=== PATIENT | female | born 1975 | race Caucasian/White ===

== ENCOUNTER 2018-09-13 20:30 | Emergency (ER) | payer MEDICAID ==
[2014-03-18 22:05] VITALS: BP 118/56
== END 2018-09-13 20:45 | disposition left against medical advice (07) ==
LOC: ER 20:30
DX: R10.9 Unspecified abdominal pain (principal)

== ENCOUNTER 2020-04-17 15:35 | Emergency (ER) | payer SELFPAY ==
[~2020-04-17] VITALS: Ht 177.8 cm; Wt 75.0 kg
--- NOTE | 2020-04-17 15:45 | PHYS DOC ---
Past Medical History Past Medical History: Anxiety, Asthma Past Surgical History: Tubal ligation Smoking Status: Current Every Day Smoker Alcohol Use: None Drug Use: None General Adult EDM: Chief Complaint: WRIST PAIN HPI: HPI: Patient is a 44 year old female with history of anxiety, asthma, presenting to the ED today complaining of 8 out of 10 bilateral wrist pain, symptoms began 4 days ago after she slipped on ice and fell bracing herself with her hands. Patient denies any loss of consciousness. Describes the pain as throbbing and intermittent worse on range of motion. States immobilization relieves the pain. Review of Systems: Review of Systems: Constitutional: Denies fever or chills. [] Musculoskeletal: Reports bilateral wrist pain. Integument: Denies rash. [] Neurologic: Denies headache, focal weakness or sensory changes. [] Psychiatric: Denies depression or anxiety. [] Heart Score: Risk Factors: Risk Factors: DM, Current or recent (<one month) smoker, HTN, HLP, family history of CAD, obesity. Risk Scores: Score 0 - 3: 2.5% MACE over next 6 weeks - Discharge Home Score 4 - 6: 20.3% MACE over next 6 weeks - Admit for Clinical Observation Score 7 - 10: 72.7% MACE over next 6 weeks - Early Invasive Strategies Allergies: Allergies: Allergies Coded Allergies Type Severity Reaction Last Updated Verified No Known Drug Allergies 03/18/14 No Physical Exam: PE: Constitutional: Well developed, well nourished, no acute distress, non-toxic appearance. [] Skin: Warm, dry, no erythema, no rash. [] Back: No tenderness, no CVA tenderness. [] Extremities: Bilateral wrists with no obvious deformity. Tenderness diffusely throughout the wrist. Full range of motion department. No scaphoid tenderness bilaterally. Adequate radial, medial, ulnar sensation to bilateral upper extremities. +2 left radial pulse. Cap refill less than 2 seconds to bilateral fingers. Neurologic: Alert and oriented X 3, normal motor function, normal sensory function, no focal deficits noted. [] Psychologic: Affect normal, judgement normal, mood normal. [] EKG: EKG: [] Radiology/Procedures: Radiology/Procedures: []PROCEDURE: WRIST BILAT 3V EXAMINATION: XR WRIST 3V CLINICAL HISTORY: Bilateral wrist pain following fall TECHNIQUE: XR WRIST 3V Number of Images/Views: 6 COMPARISON: None FINDINGS: No acute fracture. [id number] degenerative changes bilateral first CMC joints. Mild degenerative changes right triscaphe joint. No focal soft tissue swelling. IMPRESSION: No acute osseous abnormality bilateral wrists. Electronically signed by: Victorino Felix DO (04/17/2020 4:02 PM) [id number] DICTATED and SIGNED BY: VICTORINO FELIX DO DATE: 04/17/20 [id number] 0 Course & Med Decision Making: Course & Med Decision Making Pertinent Labs and Imaging studies reviewed. (See chart for details) This is a 44-year-old female patient presenting to the ED today complaining of bilateral wrist pain after falling down 4 days ago. Bilateral wrist x-rays interpreted by radiologist are negative for any acute findings, discharged to [facility]. Ice elevation encouraged. Velcro splints provided for bilateral wrists. OTC pain relievers. Follow-up with PCP orthopedic doctor in 1 to 2 weeks. Michelle Disclaimer: Michelle Disclaimer: This electronic medical record was generated, in whole or in part, using a voice recognition dictation system. Departure Departure Impression: Primary Impression: Right wrist sprain Qualified Codes: S63.501A - Unspecified sprain of right wrist, initial encounter Additional Impression: Left wrist sprain Qualified Codes: S63.502A - Unspecified sprain of left wrist, initial encounter Disposition: 01 DC HOME SELF CARE/HOMELESS Condition: STABLE Referrals: NO PCP (PCP) JENA EARLY MD follow up in 2 weeks Patient Instructions: Wrist Sprain with Rehab-Sports[facility] Additional Instructions: You were seen for bilateral wrist pain, your wrist x-rays are negative for any acute findings. Please follow-up with your primary care doctor or the provided orthopedic doctor in 1 to 2 weeks. Try to ice and elevate the extremities. FRANCESCO BABB APRN Apr 17, 2020 15:45
[2020-04-17 15:55] VITALS: BP 102/59
--- NOTE | 2020-04-17 16:04 | RAD ---
EXAMINATION: XR WRIST 3V CLINICAL HISTORY: Bilateral wrist pain following fall TECHNIQUE: XR WRIST 3V Number of Images/Views: 6 COMPARISON: None FINDINGS: No acute fracture. [id number] degenerative changes bilateral first CMC joints. Mild degenerativ e changes right triscaphe joint. No focal soft tissue swelling. IMPRESSION: No acute osseous abnormality bilateral wrists. Electronically signed by: Victorino Ibrahim DO (04/17/2020 4:02 PM) [id number]
== END 2020-04-17 16:28 | disposition home or self-care (01) ==
LOC: ER 15:35
DX: S63.501A Unspecified sprain of right wrist, initial encounter (principal); S63.502A Unspecified sprain of left wrist, initial encounter; J45.909 Unspecified asthma, uncomplicated; F17.200 Nicotine dependence, unspecified, uncomplicated; W00.0XXA Fall on same level due to ice and snow, initial encounter; Y93.89 Activity, other specified; Y92.89 Other specified places as the place of occurrence of the external cause; Y99.8 Other external cause status
CPT/HCPCS: 29125; 99283; 73110-50

== ENCOUNTER 2020-05-25 02:21 | Emergency (ER) | payer SELFPAY ==
[~2020-05-25] VITALS: Ht 177.8 cm; Wt 68.2 kg
--- NOTE | 2020-05-25 02:31 | PHYS DOC ---
Past Medical History Past Medical History: Anxiety, Asthma Past Surgical History: Tubal ligation Smoking Status: Current Every Day Smoker Alcohol Use: None Drug Use: None General Adult EDM: Chief Complaint: SEXUALLY TRANSMITTED DISEASE HPI: HPI: 44-year-old female presents with report of sore throat this been ongoing for 4 days. Patient reports no exposure to gonorrhea from her . Patient denies any vaginal discharge or discomfort. Denies fever or chills. Denies other known sick contacts. Denies known exposure to COVID-19. Denies . Reports history of tubal ligation. Review of Systems: Review of Systems: Constitutional: Denies fever or chills Eyes: Denies redness or eye pain HENT: Denies nasal congestion; reports sore throat Respiratory: Denies cough or shortness of breath Cardiovascular: Denies chest pain or palpitations GI: Denies abdominal pain, nausea, or vomiting /[employer]: Denies dysuria or hematuria; denies vaginal bleeding or discharge Musculoskeletal: Denies back pain or joint pain Integument: Denies rash or skin lesions Neurologic: Denies headache, focal weakness or sensory changes Complete systems were reviewed and found to be within normal limits, except as documented in this note. Heart Score: C/O Chest Pain: N/A Current Medications: Current Medications Medications (Trade) Dose Ordered Sig/Robin Start Time Stop Time Status Last Admin Dose Admin Azithromycin (Zithromax) 1,000 mg 1X ONCE 05/25/20 02:30 05/25/20 02:31 UNV Ceftriaxone Sodium (Rocephin Im) 500 mg 1X ONCE 05/25/20 02:30 05/25/20 02:31 UNV Allergies: Allergies: Allergies Coded Allergies Type Severity Reaction Last Updated Verified No Known Drug Allergies 03/18/14 No Physical Exam: PE: Constitutional: Well developed, well nourished, no acute distress, non-toxic appearance HENT: Normocephalic, atraumatic, pharynx erythematous without exudate Eyes: Conjunctiva normal, no discharge Neck: Normal range of motion, supple Lungs & Thorax: No respiratory distress, equal chest rise and fall Skin: Warm, dry, no erythema, no rash Extremities: No tenderness, ROM intact, no edema Neurologic: Alert and oriented X 3, no focal deficits noted Psychologic: Affect normal, judgment normal EKG: EKG: [] Radiology/Procedures: Radiology/Procedures: [] Course & Med Decision Making: Course & Med Decision Making Pertinent Lab studies reviewed. (See chart for details) Patient presents with known exposure to gonorrhea. Patient reports 4-day history of sore throat. Patient concerned she may have gonorrhea of the throat. Rapid strep negative. Chlamydia/gonorrhea culture obtained of throat. Patient denies any vaginal bleeding or discharge. Empiric antibiotic with IM Rocephin and p.o. azithromycin provided. Patient stable for discharge with outpatient follow-up with PCP. Discussed findings and plan with patient, who acknowledges understanding and agreement. Dragon Disclaimer: [employer] Disclaimer: This electronic medical record was generated, in whole or in part, using a voice recognition dictation system. Departure Departure Impression: Primary Impression: Pharyngitis Qualified Codes: J02.9 - Acute pharyngitis, unspecified Additional Impression: Exposure to sexually transmitted disease (STD) Disposition: 01 DC HOME SELF CARE/HOMELESS Condition: STABLE Referrals: NO PCP (PCP) ROCAEL ASTORGA Jr, MD Patient Instructions: Sexually Transmitted Disease, [id number]-[id number], Viral and Bacterial Pharyngitis, Nwpy-[id number] Additional Instructions: Hold antibiotics for 48 hours. If symptoms worsen or for fever > 100.3 F after 48 hours then start antibiotics as prescribed. Scripts Amoxicillin/Potassium Clav (AUGMENTIN 875-125 TABLET) 1 Each Tablet 1 TAB PO BID, #14 TAB Prov: REX MCKEE DO 05/25/20 REX MCKEE DO May 25, 2020 02:30
[2020-05-25] MEDS ORDERED: AMOX1TAB61 PO (02:42)
[2020-05-25 02:50] VITALS: BP 120/65
[2020-05-25] MEDS ORDERED: AZITHROMYCIN 250 MG TABLET. PO ONE (03:00)
[2020-05-25] MEDS ORDERED: cefTRIAXone IM 500 MG VIAL. IM ONE (03:00)
[2020-05-26 20:22] LABS: GC PROBE Positive (Negative)
== END 2020-05-25 02:59 | disposition home or self-care (01) ==
LOC: ER 02:21
DX: J02.9 Acute pharyngitis, unspecified (principal); Z20.2 Contact with and (suspected) exposure to infections with a predominantly sexual mode of transmission; F41.9 Anxiety disorder, unspecified; J45.909 Unspecified asthma, uncomplicated; F17.200 Nicotine dependence, unspecified, uncomplicated; Z98.890 Other specified postprocedural states
CPT/HCPCS: 81025; 87070; 87491; 87591; 87880; 96372; 99283; J0696

== ENCOUNTER 2021-03-27 21:50 | Emergency (ER) | payer SELFPAY ==
[~2021-03-27] VITALS: Ht 177.8 cm; Wt 68.2 kg
[~2021-03-27 21:50] MED LIST: AMOX1TAB61 PO
[2021-03-27 22:50] LABS: BASO % 1 % (0-3); EOS # 0.1 x10^3/uL (0.0-0.7); EOS % 2 % (0-3); HEMATOCRIT 41.4 % (36.0-47.0); HEMOGLOBIN 14.6 g/dL (12.0-15.5); LYMPH # 1.2 x10^3/uL (1.0-4.8); LYMPH % 20 % (24-48); MEAN CORPUSCULAR HEMOGLOBIN 33 pg (25-35); MEAN CORPUSCULAR HGB CONC 35 g/dL (31-37); MEAN CORPUSCULAR VOLUME 93 fL (79-100); MONO # 0.7 x10^3/uL (0.0-1.1); MONO % 11 % (0-9); NEUT # 3.9 x10^3/uL (1.8-7.7); NEUT % 66 % (31-73); PLATELET COUNT 242 x10^3/uL (140-400); RED BLOOD COUNT 4.45 x10^6/uL (3.50-5.40); RED CELL DISTRIBUTION WIDTH 12.3 % (11.5-14.5); WHITE BLOOD COUNT 5.9 x10^3/uL (4.0-11.0)
[2021-03-27] MEDS ORDERED: diazePAM 5 MG TABLET PO ONE (23:00)
[2021-03-27] MEDS ORDERED: IV NORMAL SALINE 1000ML BAG 1,000 ML IV ONE (23:00)
[2021-03-27 23:01] LABS: CALCIUM 8.4 mg/dL (8.5-10.1); CREATININE 0.9 mg/dL (0.6-1.0); POTASSIUM 3.8 mmol/L (3.5-5.1)
[2021-03-27 23:03] LABS: C-REACTIVE PROTEIN 0.9 mg/L (0-3.3)
[2021-03-28] MEDS ORDERED: KETOROLAC 15 MG/ML VIAL. IVP ONE
[2021-03-28] MEDS ORDERED: ACETAMINOPHEN 325 MG TABLET. PO ONE
--- NOTE | 2021-03-28 01:26 | RAD ---
PQRS Compliance Statement: One or more of the following individualized dose reduction techniques were utilized for this examinat ion: 1. Automated exposure control 2. Adjustment of the mA and/or kV according to patient size 3. Use of iterative reconstruction technique CT LUMBAR SPINE WO Clinical Indication: Reason: LUMBAR PAIN, FALL / Spl. Instructions: / History: Comparison: None. TECHNIQUE: Helical CT imaging of the lumbar spine is performed without IV contrast. Findings: No acute fracture is seen. The vertebral body height and alignment are maintained. There is disc spac e narrowing and vacuum disc phenomenon of L5/S1. The other disc spaces are maintained. There are dege nerative changes of the bilateral sacroiliac joints. There is minimal left convexity lumbar scoliosis . Transverse processes are intact. At L4/L5: There is a posterior disc bulge. Central canal stenosis is mild. Mild bilateral neural fora irena narrowing is seen. L5/S1: There is a small posterior disc osteophyte complex. The central canal is adequate. There is mi ld bilateral neural foraminal narrowing. The lung bases are clear. Uterus is retroverted. Limited visualization of the retroperitoneum is unre markable. IMPRESSION: No acute fracture or malalignment of the lumbar spine. Electronically signed by: Fernando Leigh MD (03/28/2021 1:24 AM) [facility]
[2021-03-28 02:00] VITALS: BP 121/78
--- NOTE | 2021-03-28 02:08 | PHYS DOC ---
Past Medical History Past Medical History: Anxiety, Asthma, Other Additional Past Medical Histor: HYPOGLYCEMIA Past Surgical History: Tubal ligation Smoking Status: Former Smoker Alcohol Use: None Drug Use: None Social History Narrative: IV- USED YESTERDAY General Adult EDM: Chief Complaint: BACK INJURY HPI: HPI: Patient is a 45 year old female with history of methamphetamine IVDU who presents with back pain. States the pain started 2 days ago. States that she dove on the floor to break up a dog fight and had a back spasm. States that the back spasm have increasingly worsened. States it is worse with the movement in her bilateral lower legs. The pain does not radiate into the legs. No saddle anesthesia. No fevers or chills. No night sweats. States that she has been laying on her floor constantly. No bowel incontinence or retention. No urinary retention. States that she did have an accident on her floor, because it hurt too much to get off of the floor to go to the restroom. States that she did not lose control of her bladder. Last methamphetamine use was yesterday. Review of Systems: Review of Systems: Constitutional: Denies fever or chills. [] HENT: Denies nasal congestion or sore throat. [] Respiratory: Denies cough or shortness of breath. [] Cardiovascular: Denies chest pain or edema. [] GI: Denies abdominal pain, nausea, vomiting, bloody stools or diarrhea. [] : No dysuria, urgency, frequency. Musculoskeletal: Reports low back spasm Integument: Denies rash. [] Neurologic: Denies headache, focal weakness or sensory changes. [] Psychiatric: Denies depression or anxiety. [] Heart Score: C/O Chest Pain: No Risk Factors: Risk Factors: DM, Current or recent (<one month) smoker, HTN, HLP, family history of CAD, obesity. Risk Scores: Score 0 - 3: 2.5% MACE over next 6 weeks - Discharge Home Score 4 - 6: 20.3% MACE over next 6 weeks - Admit for Clinical Observation Score 7 - 10: 72.7% MACE over next 6 weeks - Early Invasive Strategies Current Medications: Current Medications Medications (Trade) Dose Ordered Sig/Robin Start Time Stop Time Status Last Admin Dose Admin Acetaminophen (Tylenol) 650 mg 1X ONCE 03/28/21 00:00 03/28/21 00:01 DC 03/27/21 23:48 650 MG Ceftriaxone Sodium (Rocephin Im) 500 mg 1X ONCE 03/28/21 02:30 03/28/21 02:31 Diazepam (Valium) 5 mg 1X ONCE 03/27/21 23:00 03/27/21 23:01 DC 03/27/21 22:37 5 MG Doxycycline Hyclate (Vibra-Tab) 100 mg 1X ONCE 03/28/21 02:30 03/28/21 02:31 Ketorolac Tromethamine (Toradol 15mg Vial) 15 mg 1X ONCE 03/28/21 00:00 03/28/21 00:01 DC 03/27/21 23:46 15 MG Lorazepam (Ativan Inj) 1 mg 1X ONCE 03/28/21 00:00 03/28/21 00:01 DC 03/27/21 23:45 1 MG Sodium Chloride 1,000 ml @ 1,000 mls/hr 1X ONCE 03/27/21 23:00 03/27/21 23:59 DC 03/27/21 22:31 1,000 MLS/HR Allergies: Allergies: Allergies Coded Allergies Type Severity Reaction Last Updated Verified latex Allergy Intermediate Hives 05/25/20 Yes aspirin Allergy Mild Nausea 05/25/20 Yes Physical Exam: PE: Constitutional: Disheveled appearing with slightly poor hygiene. Screaming frequently. HENT: Normocephalic, atraumatic, Neck: Normal range of motion, no tenderness, supple, no stridor. [] Cardiovascular:Heart rate regular rhythm, no murmur [] Lungs & Thorax: Bilateral breath sounds clear to auscultation [] Abdomen: Bowel sounds normal, soft, no tenderness, no masses, no pulsatile masses. [] Skin: Scattered excoriations on the skin. Back: No tenderness, no CVA tenderness. [] Extremities: No tenderness, no cyanosis, no clubbing, ROM intact, no edema. [] Neurologic: Alert and oriented X 3, normal motor function, normal sensory f unction, no focal deficits noted. [] Specifically 5/5 strength bilaterally in: -Hip flexion and adduction -Knee flexion/extension -Ankle dorsi/plantar flexion -Dorsiflexion of the great toe Current Patient Data: Labs: Laboratory Tests Test 03/27/21 22:43 White Blood Count 5.9 x10^3/uL (4.0-11.0) Red Blood Count 4.45 x10^6/uL (3.50-5.40) Hemoglobin 14.6 g/dL (12.0-15.5) Hematocrit 41.4 % (36.0-47.0) Mean Corpuscular Volume 93 fL (79-100) Mean Corpuscular Hemoglobin 33 pg (25-35) Mean Corpuscular Hemoglobin Concent 35 g/dL (31-37) Red Cell Distribution Width 12.3 % (11.5-14.5) Platelet Count 242 x10^3/uL (140-400) Neutrophils (%) (Auto) 66 % (31-73) Lymphocytes (%) (Auto) 20 % (24-48) L Monocytes (%) (Auto) 11 % (0-9) H Eosinophils (%) (Auto) 2 % (0-3) Basophils (%) (Auto) 1 % (0-3) Neutrophils # (Auto) 3.9 x10^3/uL (1.8-7.7) Lymphocytes # (Auto) 1.2 x10^3/uL (1.0-4.8) Monocytes # (Auto) 0.7 x10^3/uL (0.0-1.1) Eosinophils # (Auto) 0.1 x10^3/uL (0.0-0.7) Basophils # (Auto) 0.0 x10^3/uL (0.0-0.2) Erythrocyte Sedimentation Rate 20 (0-25) Sodium Level 137 mmol/L (136-145) Potassium Level 3.8 mmol/L (3.5-5.1) Chloride Level 106 mmol/L (98-107) Carbon Dioxide Level 25 mmol/L (21-32) Anion Gap 6 (6-14) Blood Urea Nitrogen 18 mg/dL (7-20) Creatinine 0.9 mg/dL (0.6-1.0) Estimated GFR (Cockcroft-Gault) 68.0 Glucose Level 97 mg/dL (70-99) Calcium Level 8.4 mg/dL (8.5-10.1) L C-Reactive Protein, Quantitative 0.9 mg/L (0-3.3) Laboratory Tests 03/27/21 22:43 Laboratory Tests 03/27/21 22:43 EKG: EKG: [] Radiology/Procedures: Radiology/Procedures: [] Impression: [facility] [address] [place] [address] IMAGING REPORT Signed PATIENT: MICHAEL HERNANDEZ ACCOUNT: [id number] : 1975 LOCATION: ER AGE: 45 SEX: F EXAM STATUS: REG ER ORD. PHYSICIAN: FEDERICO MOFFETT MD REASON: LUMBAR PAIN, FALL PROCEDURE: CT LUMBAR SPINE WO CONTRAST PQRS Compliance Statement: One or more of the following individualized dose reduction techniques were utilized for this examination: 1. Automated exposure control 2. Adjustment of the mA and/or kV according to patient size 3. Use of iterative reconstruction technique CT LUMBAR SPINE WO Clinical Indication: Reason: LUMBAR PAIN, FALL / Spl. Instructions: / History: Comparison: None. TECHNIQUE: Helical CT imaging of the lumbar spine is performed without IV contrast. Findings: No acute fracture is seen. The vertebral body height and alignment are maintained. There is disc space narrowing and vacuum disc phenomenon of L5/S1. The other disc spaces are maintained. There are degenerative changes of the bilateral sacroiliac joints. There is minimal left convexity lumbar scoliosis. Transverse processes are intact. At L4/L5: There is a posterior disc bulge. Central canal stenosis is mild. Mild bilateral neural foraminal narrowing is seen. L5/S1: There is a small posterior disc osteophyte complex. The central canal is adequate. There is mild bilateral neural foraminal narrowing. The lung bases are clear. Uterus is retroverted. Limited visualization of the retroperitoneum is unremarkable. IMPRESSION: No acute fracture or malalignment of the lumbar spine. Electronically signed by: Fernando Latif MD (03/28/2021 1:24 AM) [facility] DICTATED and SIGNED BY: FERNANDO LATIF MD DATE: 03/28/21 [id number] 0 Course & Med Decision Making: Course & Med Decision Making Pertinent Labs and Imaging studies reviewed. (See chart for details) Patient is a 45-year-old female with history of methamphetamine IVDU who presents with 2 days of low back pain. The pain discretely started after diving on the floor. History sounds most c onsistent with back spasm. Given Valium and ketorolac in the ED with some symptomatic improvement. CT of the lumbar spine did not show any evidence of acute traumatic injury. Given her IVDU I carefully considered the possibility of spinal epidural abscess. The patient has normal vital signs, no fever/chills, normal WBC, ESR, and CRP. Therefore I feel this is much less likely. The patient repeatedly refused to give a urine sample for UA/ test (although she does report hx of tubal ligation), screaming "get the fuck out of my face!" repeatedly at RN. At this time emergent causes of back pain are thought to be ruled out and patient is safe for discharge. Given her behavior in the ED and substance abuse history I do not feel she would be an appropriate candidate for meds with substance abuse potential (ie narcotics, bzd, muscle relaxers). Given instructions on NSAID and tylenol usage. Dragon Disclaimer: Dragon Disclaimer: This electronic medical record was generated, in whole or in part, using a voice recognition dictation system. Departure Departure Impression: Primary Impression: Lumbar back pain Disposition: 01 HOME / SELF CARE / HOMELESS Condition: STABLE Referrals: NO PCP (PCP) Patient Instructions: Low Back Sprain with Rehab-SportsMed Additional Instructions: For pain tylenol and ibuprofen are best used on a schedule. Please alternate between the two. -Tylenol 1000 mg every 6 hours (do not exceed 4000 mg in one day) -Ibuprofen 600 mg every 6 hours. Take with food. If you develop high fevers/shaking chills, weakness in your legs, severe numbne ss, or other new/concerning symptoms you can return to the emergency department for re-evaluation. FEDERICO MOFFETT MD Mar 28, 2021 02:08
[2021-03-28] MEDS ORDERED: cefTRIAXone IM 500 MG VIAL. IM ONE (02:30)
[2021-03-28] MEDS ORDERED: DOXYCYCLINE HYCLATE 100 MG TABLET PO ONE (02:30)
== END 2021-03-28 02:26 | disposition home or self-care (01) ==
LOC: ER 21:50
DX: M54.50 Low back pain, unspecified (principal); J45.909 Unspecified asthma, uncomplicated; Z87.891 Personal history of nicotine dependence; Z98.51 Tubal ligation status; Z88.6 Allergy status to analgesic agent; Z91.040 Latex allergy status
CPT/HCPCS: 36415; 72131; 80048; 85025; 85651; 86140; 87040; 96361; 96374; 96375; 99285; J1885; J2060; J7030